=== PATIENT | female | born 1950 | race Caucasian/White ===

== ENCOUNTER 2021-04-22 10:18 | Emergency (ER) | payer BC ==
[~2021-04-22] VITALS: Ht 154.9 cm; Wt 72.1 kg
[~2021-04-22 10:18] MED LIST: AMBIEN5 MG PO; IBUPROFEN 800800 M1 PO; LEXAPRO 10 MG T10 M1 PO; MEDROL DOSPAK21 TA1 PO; PERCOCET 7.5-31 EACH PO
[2021-04-22 10:58] LABS: ABSOLUTE LYMPHOCYTES 1.7 thou/uL (0.8-5.3); ABSOLUTE MONOCYTES 0.4 thou/uL (0.0-1.2); ABSOLUTE NEUTROPHILS 9.4 thou/uL (1.6-8.1); BASOPHILS 0.3 %; EOSINOPHILS 0.4 %; HEMATOCRIT 42.4 % (37.0-47.0); HEMOGLOBIN 13.9 gm/dL (12.0-15.0); LYMPHOCYTES 14.4 %; MCHC 32.8 g/dL (28.0-37.0); MCV 94.5 fL (80.0-100.0); MONOCYTES 3.6 %; MPV 8.5 fl. (7.2-11.1); NUCLEATED RBCS 0 /100WBC; PLATELET COUNT* 217 thou/uL (150-400); POLYS 81.3 %; RBC 4.48 mil/uL (4.20-5.00); RDW-CV 17.7 % (10.5-14.5); WBC 11.6 thou/uL (4.0-11.0)
[2021-04-22 11:09] LABS: CALCIUM 8.7 mg/dL (8.5-10.1); CREATININE 0.9 mg/dL (0.6-1.3); POTASSIUM 3.3 mmol/L (3.5-5.1)
[2021-04-22 11:14] LABS: ALBUMIN 3.7 g/dL (3.4-5.0); TOTAL BILIRUBIN 1.1 mg/dL (<0.1-1.0); TOTAL PROTEIN 7.1 g/dL (6.4-8.2)
[2021-04-22] MEDS ORDERED: HYDROCODON-ACE1 EAC7 PO (13:04)
[2021-04-22] MEDS ORDERED: AUGMENTIN 875-1 EACH PO (13:04)
[2021-04-22 13:15] VITALS: BP 135/65
--- NOTE | 2021-04-22 14:32 | EKG ---
[place] [address] ELECTROCARDIOGRAM REPORT Name: YVONNE PEÑALOZA Room: [facility]#: [id number] Admission: 04/22/21 Attend Phys: Discharge: 04/22/21 Date of : 52 Date of Service: 04/22/21 1028 Report #: [id number] THIS REPORT FOR: //name// [facility] ED Test Date: 2021-04-22 Test Time: 10:28:32 Pat Name: YVONNE PEÑALOZA Department: Room: Gender: F [employer]: : 1950 Requested By: Saw Roque Order Number: [id number] MD: Ruy Florentino Measurements Intervals [place] Rate: 57 P: 66 OK: 157 QRS: 69 QRSD: 89 T: 68 QT: 442 QTc: 431 Interpretive Statements Sinus rhythm No previous ECG available for comparison Electronically Signed On 04-22-2021 14:32:04 SURGICAL INSTRUMENT [employer]KER by Ruy Florentino [email or web address] <ELECTRONICALLY SIGNED> By: Ruy Florentino MD, [facility] 04/22/21 1432 1028 102 Ruy Florentino MD, FACC /EPI
== END 2021-04-22 13:15 | disposition home or self-care (01) ==
LOC: M.ERS 10:18
PROVIDERS: Physician Assistant
DX: N20.1 Calculus of ureter (principal); K52.9 Noninfective gastroenteritis and colitis, unspecified; Z90.89 Acquired absence of other organs